=== PATIENT | female | born 1955 | race African-American/Black ===

== ENCOUNTER 2017-09-01 07:04 | Emergency (ER) | payer BC ==
[~2017-09-01] VITALS: Ht 162.6 cm; Wt 91.0 kg
[~2017-09-01 07:04] MED LIST: AMLO10 PO; ATOR80TA PO; MOBI15TA PO; PRIL10CA PO; TAB-TAB PO
[2017-09-01 07:06] VITALS: BP 188/129; PULSE 99; RESP 18; TEMP 98.8; O2SAT 97
--- NOTE | 2017-09-01 07:27 | PD ---
HPI Chief Complaint: Flank/Kidney Pain Time Seen by Provider: 07:24 Travel History International Travel<30 days: No Contact w/Intl Traveler<30days: No Traveled to known affect area: No History of Present Illness HPI 62-year-old female patient with history of hypertension, presents to the ER today because of 2 days history of left flank pain which started on its own, worsening, currently a 9 out of 10. She denies any vomiting, fevers, urinary symptoms, or other symptoms. She does not know any exacerbating or alleviating factors. Modifying Factors: None Associated Signs & Symptoms: Left flank pains Risk Factors: None PFSH Past Medical History Arthritis: Yes Anxiety: Yes Heart Rhythm Problems: Yes (Heart Murmur) Cardiac Catheterization: No Cardiovascular Problems: Yes High Cholesterol: Yes Congestive Heart Failure: No Diabetes: No Diminished Hearing: No GERD: Yes Hypertension: Yes Immunizations Current: Yes Triglycerides - High: Yes ?: Not Menopausal: Yes Past Surgical History Coronary Artery Bypass Graft: No Hysterectomy: Yes Other Surgery: Yes (right knee) Family History Family Myocardial Infarction: Yes Social History Alcohol Use: Yes (WINE NIGHTLY) Tobacco Use: No Substance Use: No Allergies-Medications (Allergen,Severity, Reaction): Coded Allergies: No Known Allergies (Verified Adverse Reaction, Unknown, 09/01/17) Reported Meds & Prescriptions Reported Meds & Active Scripts Active Review of Systems Except as stated in HPI: all other systems reviewed are Neg Physical Exam Narrative GENERAL: Well-developed elderly -Palest[place] female patient currently in moderate distress, tearful, awake and oriented 3. SKIN: Focused skin assessment warm/dry. HEAD: Atraumatic. Normocephalic. EYES: Pupils equal and round. No scleral icterus. No injection or drainage. ENT: No nasal bleeding or discharge. Mucous membranes pink and moist. NECK: Trachea midline. No JVD. CARDIOVASCULAR: Regular rate and rhythm. No murmur appreciated. RESPIRATORY: No accessory muscle use. Clear to auscultation. Breath sounds equal bilaterally. GASTROINTESTINAL: Abdomen soft, left upper quadrant and left-sided mild tenderness without guarding or rebound, nondistended. Hepatic and splenic margins not palpable. MUSCULOSKELETAL: No obvious deformities. No clubbing. No cyanosis. No edema. BACK: Left CVA tenderness. No rash. No point tenderness on palpation of the spine. NEUROLOGICAL: Awake and alert. No obvious cranial nerve deficits. Motor grossly within normal limits. Normal speech. PSYCHIATRIC: Appropriate mood and affect; insight and judgment normal. Data Data Last Documented VS Vital Signs Date Time Temp Pulse Resp B/P (MAP) Pulse Ox O2 Delivery O2 Flow Rate FiO2 09/01/17 07:40 98.5 73 20 144/95 (111) 100 Orders Orders Complete Blood Count With Diff (09/01/17 07:24) Comprehensive Metabolic Panel (09/01/17:24) Lipase (09/01/17:24) Urinalysis - C+S If Indicated (09/01/17:24) Ct Abd/Pel W/O Iv Contrast (09/01/17:24) Iv Access Insert/Monitor (09/01/17:24) Ecg Monitoring (09/01/17:) Oximetry (09/01/17:24) Sodium Chlor 0.9% 1000 Ml Inj (Ns 1000 M (09/01/17 07:24) Sodium Chloride 0.9% Flush (Ns Flush) (09/01/17 07:30) Ketorolac Inj (Toradol Inj) (09/01/17 07:30) Labs Laboratory Tests Test 09/01/17 07:30 White Blood Count 8.1 TH/MM3 Red Blood Count 4.87 MIL/MM3 Hemoglobin 14.4 GM/DL Hematocrit 42.6 % Mean Corpuscular Volume 87.4 FL Mean Corpuscular Hemoglobin 29.6 PG Mean Corpuscular Hemoglobin Concent 33.9 % Red Cell Distribution Width 12.9 % Platelet Count 281 TH/MM3 Mean Platelet Volume 7.9 FL Neutrophils (%) (Auto) 65.1 % Lymphocytes (%) (Auto) 26.1 % Monocytes (%) (Auto) 6.7 % Eosinophils (%) (Auto) 1.5 % Basophils (%) (Auto) 0.6 % Neutrophils # (Auto) 5.3 TH/MM3 Lymphocytes # (Auto) 2.1 TH/MM3 Monocytes # (Auto) 0.5 TH/MM3 Eosinophils # (Auto) 0.1 TH/MM3 Basophils # (Auto) 0.0 TH/MM3 CBC Comment DIFF FINAL Differential Comment Urine Color LIGHT-YELLOW Urine Turbidity CLEAR Urine pH 7.5 Urine Specific [place] 1.012 Urine Protein NEG mg/dL Urine Glucose (UA) NEG mg/dL Urine Ketones NEG mg/dL Urine Occult Blood NEG Urine Nitrite NEG Urine Bilirubin NEG Urine Urobilinogen LESS THAN 2.0 MG/DL Urine Leukocyte Esterase TRACE Urine RBC LESS THAN 1 /hpf Urine WBC 1 /hpf Urine Squamous Epithelial Cells <1 /hpf Microscopic Urinalysis Comment CULT NOT INDICATED Blood Urea Nitrogen 12 MG/DL Creatinine 0.72 MG/DL Random Glucose 105 MG/DL Total Protein 8.8 GM/DL Albumin 4.1 GM/DL Calcium Level 9.4 MG/DL Alkaline Phosphatase 141 U/L Aspartate Amino Transf (AST/SGOT) 22 U/L Alanine Aminotransferase (ALT/SGPT) 47 U/L Total Bilirubin 0.6 MG/DL Sodium Level 139 MEQ/L Potassium Level 3.7 MEQ/L Chloride Level 104 MEQ/L Carbon Dioxide Level 26.3 MEQ/L Anion Gap 9 MEQ/L Estimat Glomerular Filtration Rate 100 ML/MIN Lipase 114 U/L [facility] Medical Decision Making Medical Screen Exam Complete: Yes Emergency Medical Condition: Yes Medical Record Reviewed: Yes Interpretation(s) Laboratory Tests Test 09/01/17 07:30 Urine Leukocyte Esterase TRACE (NEG) Total Protein 8.8 GM/DL (6.4-8.2) Alkaline Phosphatase 141 U/L (45-117) Last 24 hours Impressions Abdomen/Pelvis CT 09/01/17723 Signed Impressions: Service Date/Time: Friday, September 01, 2017 07:47 - CONCLUSION: Normal examination. Small right-sided renal stone. Sigmoid diverticulosis without evidence of diverticulitis . Fermín Honeycutt MD Differential Diagnosis Left flank pains: Renal colic versus muscular skeletal versus UTI/pyelonephritis Narrative Course CAT scan did not show any signs of acute intra-abdominal processes. Lab work was otherwise unremarkable. Patient was given try to offer pain and Flexeril. Vital signs are stable in the ER. No signs of UTI or significant metabolic issues were identified. No signs of leukocytosis was identified. At this point , my plan would be to release the patient with follow-up to primary care doctor. Return for any worsening in pain, or new symptoms as needed. The plan has been discussed with the patient and she states understanding. Diagnosis Primary Impression: Flank pain Med/Other Pt SpecificInfo: Prescription(s) given Scripts Tramadol (Tramadol) 50 Mg Tab 50 MG PO Q8H Y for PAIN, #15 TAB 0 Refills Prov: Shayla Arevalo MD 09/01/17 Disposition: 01 DISCHARGE HOME Condition: Stable Shayla Arevalo MD Sep 01, 2017 07:27
[2017-09-01] MEDS ORDERED: KETOROLAC TROMETHAMINE 30 MG/ML (IVP) VIAL IVP ONE (07:30)
[2017-09-01] MEDS ORDERED: SODIUM CHLORIDE 0.9% FLUSH 10 ML FLUSH IV FLUSH PRN (07:30)
[2017-09-01] MEDS: SODIUM CHLOR 0.9% 1000 ML INJ 1,000 ML IV SCH ×2 (07:36→09:11)
[2017-09-01 07:40] VITALS: BP 144/95; PULSE 73; RESP 20; TEMP 98.5; O2SAT 100
[2017-09-01] MEDS ORDERED: AMLO10TA2 PO (07:44)
[2017-09-01] MEDS ORDERED: SIMV10TA PO (07:44)
[2017-09-01] MEDS ORDERED: MELO7.5T27 PO (07:44)
[2017-09-01] MEDS ORDERED: CALC12502 PO (07:44)
[2017-09-01] MEDS ORDERED: OMEP20TA93 PO (07:44)
--- NOTE | 2017-09-01 08:07 | RADRPT ---
EXAM DATE/TIME: 09/01/2017 07:47 [facility] COMPARISON: No previous studies available for comparison. INDICATIONS : Left flank pain. ORAL CONTRAST: No oral contrast ingested. RADIATION DOSE: 13.51 CTDIvol (mGy) MEDICAL HISTORY : Cardiovascular disease. Hypertension. SURGICAL HISTORY : Hysterectomy. ENCOUNTER: Initial ACUITY: 1 day PAIN SCALE: 6/10 LOCATION: Left flank TECHNIQUE: Volumetric scanning of the abdomen and pelvis was performed. Using automated exposure control and ad justment of the mA and/or kV according to patient size, radiation dose was kept as low as reasonably achievable to obtain optimal diagnostic quality images. DICOM format image data is available electro nically for review and comparison. FINDINGS: LOWER LUNGS: The visualized lower lungs are clear. LIVER: Homogeneous density without lesion. There is no dilation of the biliary tree. No calcified gallston es. SPLEEN: Normal size without lesion. PANCREAS: Within normal limits. KIDNEYS: Normal in size and shape. There is no mass, or hydronephrosis. Small stone mid pole right kidney ADRENAL GLANDS: Within normal limits. VASCULAR: There is no aortic aneurysm. BOWEL/MESENTERY: The stomach, small bowel, and colon demonstrate no acute abnormality. There is no free intraperitone al air or fluid. ABDOMINAL WALL: Within normal limits. RETROPERITONEUM: There is no lymphadenopathy. BLADDER: No wall thickening or mass. REPRODUCTIVE: Within normal limits. INGUINAL: There is no lymphadenopathy or hernia. MUSCULOSKELETAL: Within normal limits for patient age. CONCLUSION: Normal examination. Small right-sided renal stone. Sigmoid diverticulosis without evidence of diverticulitis . Fermín Honeycutt MD on September 01, 2017 at 8:03 Board Certified Radiologist. This report was verified electronically.
[2017-09-01 08:16] LABS: ALT (GPT) 47 U/L (10-53); ANION GAP 9 MEQ/L (5-15); AST (GOT) 22 U/L (15-37); AUTOMATED NEUTROPHIL # 5.3 TH/MM3 (1.8-7.7); BASOPHIL % 0.6 % (0.0-2.0); BICARBONATE 26.3 MEQ/L (21.0-32.0); BLOOD UREA NITROGEN 12 MG/DL (7-18); CHLORIDE 104 MEQ/L (98-107); EOSINOPHIL # 0.1 TH/MM3 (0-0.4); EOSINOPHIL % 1.5 % (0.0-4.0); GLOMERULAR FILTRATION RATE 100 ML/MIN (>89); HEMATOCRIT 42.6 % (35.0-46.0); HEMO FLAGS DIFF FINAL; LYMPH % 26.1 % (9.0-44.0); LYMPHOCYTE # 2.1 TH/MM3 (1.0-4.8); MEAN CELL VOLUME 87.4 FL (80.0-100.0); MEAN CORPUSCULAR HEMOGLOBIN 29.6 PG (27.0-34.0); MEAN CORPUSCULAR HGB CONC 33.9 % (32.0-36.0); MONO % 6.7 % (0.0-8.0); NEUT % 65.1 % (16.0-70.0); PLATELET COUNT 281 TH/MM3 (150-450); POTASSIUM 3.7 MEQ/L (3.5-5.1); RED BLOOD COUNT 4.87 MIL/MM3 (4.00-5.30); RED CELL DISTRIBUTION WIDTH 12.9 % (11.6-17.2); SODIUM (NA) 139 MEQ/L (136-145); WHITE BLOOD COUNT 8.1 TH/MM3 (4.0-11.0)
[2017-09-01 08:18] LABS: BLOOD, URINE NEG (NEG); GLUCOSE,URINE NEG (NEG); KETONE, URINE NEG (NEG); NITRITE,URINE NEG (NEG); PH, URINE 7.5 (5.0-8.5); SQUAMOUS EPITHELIAL CELL URINE <1 /hpf (0-5); URINE COLOR LIGHT-YELLOW (YELLW/STRAW)
[2017-09-01 08:19] LABS: ALKALINE PHOSPHATASE 141 U/L (45-117); TOTAL BILIRUBIN ADULT 0.6 MG/DL (0.2-1.0)
[2017-09-01 08:26] LABS: COMMENT (UR) CULT NOT INDICATED; CULTURE IF INDICATED CULT NOT INDICATED
[2017-09-01] MEDS ORDERED: TRAM50TA PO (08:39)
[2017-09-01] MEDS ORDERED: CYCLOBENZAPRINE HCL 10 MG TAB PO ONE (08:45)
[2017-09-01 09:12] VITALS: RESP 20
== END 2017-09-01 09:52 | disposition home or self-care (01) ==
LOC: NEPC 07:04
DX: N20.0 Calculus of kidney (principal); K57.30 Diverticulosis of large intestine without perforation or abscess without bleeding; I10 Essential (primary) hypertension; M19.90 Unspecified osteoarthritis, unspecified site; F41.9 Anxiety disorder, unspecified; E78.00 Pure hypercholesterolemia, unspecified; K21.9 Gastro-esophageal reflux disease without esophagitis
CPT/HCPCS: 74176; 80053; 81001; 83690; 85025; 96361; 96374; 99285; J1885; J7030

== ENCOUNTER 2017-11-24 13:09 | Observation (INO) | payer BC ==
[~2017-11-24] VITALS: Ht 165.1 cm; Wt 86.0 kg
[~2017-11-24 13:09] MED LIST changes: -AMLO10 PO; +AMLO10TA2 PO; -ATOR80TA PO; +CALC12502 PO; +MELO7.5T27 PO; -MOBI15TA PO; +OMEP20TA93 PO; -PRIL10CA PO; +SIMV10TA PO; -TAB-TAB PO; +TRAM50TA PO
[2017-11-24 13:12] VITALS: BP 145/98; PULSE 87; RESP 16; TEMP 98.7; O2SAT 100
[2017-11-24] MEDS ORDERED: HYDR-3516 PO (13:41)
[2017-11-24] MEDS ORDERED: LISI10TA3 PO (13:41)
[2017-11-24] MEDS ORDERED: CYCL10TA PO (13:41)
[2017-11-24] MEDS ORDERED: FAMOTIDINE 20 MG/2 ML VIAL IV PUSH ONE (13:45)
[2017-11-24] MEDS ORDERED: SODIUM CHLORIDE 0.9% FLUSH 10 ML FLUSH IV FLUSH PRN ×2 (13:45→15:30)
[2017-11-24] MEDS ORDERED: methylPREDNISolone SOD SUCC 125 MG/2 ML VIAL IV PUSH ONE (13:45)
[2017-11-24] MEDS ORDERED: diphenhydrAMINE HCL 50 MG/ML VIAL IVP ONE (13:45)
[2017-11-24 13:46] VITALS: RESP 16
[2017-11-24 13:58] VITALS: BP 159/93; PULSE 83; RESP 18; O2SAT 100
[2017-11-24 14:06] LABS: HEMATOCRIT 42.6 % (35.0-46.0); HEMOGLOBIN 14.1 GM/DL (11.6-15.3); MEAN CELL VOLUME 87.4 FL (80.0-100.0); MEAN CORPUSCULAR HGB CONC 33.2 % (32.0-36.0); MEAN PLATELET VOLUME 7.7 FL (7.0-11.0); PLATELET COUNT 293 TH/MM3 (150-450); RED BLOOD COUNT 4.87 MIL/MM3 (4.00-5.30); RED CELL DISTRIBUTION WIDTH 12.9 % (11.6-17.2); WHITE BLOOD COUNT 9.6 TH/MM3 (4.0-11.0)
[2017-11-24 14:17] LABS: BICARBONATE 25.6 MEQ/L (21.0-32.0); CALCIUM 9.4 MG/DL (8.5-10.1); CREATININE 0.7 MG/DL (0.50-1.00)
--- NOTE | 2017-11-24 14:20 | PD ---
HPI Chief Complaint: Allergic/Adverse Reaction Time Seen by Provider: 13:34 Travel History International Travel<30 days: No Contact w/Intl Traveler<30days: No Traveled to known affect area: No History of Present Illness HPI 62 y/o female presents with swelling to her lip and face that started approximately 2 hours ago. She states she took a Flexeril they're the time that this happened but she's taken that before. She states she also has hydrocodone for her pain after her recent surgery to her arm that she's also taken before. She states that she is on lisinopril and has been on that for a couple of months. She denies any other concurrent complaints at this time. Quality is swollen. Location is lip and lower face. She denies specific modifying factors. PFSH Past Medical History Arthritis: Yes Anxiety: Yes Heart Rhythm Problems: Yes (Heart Murmur) Cardiac Catheterization: No Cardiovascular Problems: Yes High Cholesterol: Yes Congestive Heart Failure: No Diabetes: No Diminished Hearing: No GERD: Yes Heparin Induced Thrombocytopen: No Hypertension: Yes Immunizations Current: Yes Triglycerides - High: Yes Tetanus Vaccination: Unknown Influenza Vaccination: No Menopausal: Yes Past Surgical History Coronary Artery Bypass Graft: No Hysterectomy: Yes Other Surgery: Yes (right knee) Family History Family Myocardial Infarction: Yes Social History Alcohol Use: Yes (WINE NIGHTLY) Tobacco Use: No Substance Use: No Allergies-Medications (Allergen,Severity, Reaction): Coded Allergies: acetaminophen (Verified Allergy, Severe, ANGIOEDEMA, 11/24/17) cyclobenzaprine (Verified Allergy, Severe, ANGIOEDEMA, 11/24/17) hydrocodone (Verified Allergy, Severe, ANGIOEDEMA, 11/24/17) Reported Meds & Prescriptions Reported Meds & Active Scripts Active Reported Hydrocodone-Acetaminophen 5-325 mg Tab 1 Tab PO Q6H PRN Flexeril (Cyclobenzaprine HCl) 10 Mg Tab 10 Mg PO BID Lisinopril 10 Mg Tab 10 Mg PO DAILY Calcium Carbonate 500 Mg Calcium (1250 Mg) Tab 1,250 Mg PO BID 1,250 mg calcium carbonate (500 mg elemental calcium) Simvastatin 10 Mg Tab 10 Mg PO DAILY Amlodipine (Amlodipine Besylate) 10 Mg Tab 10 Mg PO DAILY Meloxicam 7.5 Mg Tab 7.5 Mg PO DAILY Omeprazole 20 Mg Tab 20 Mg PO DAILY Review of Systems Except as stated in HPI: all other systems reviewed are Neg Physical Exam Narrative GENERAL: Well-nourished, well-developed patient. SKIN: Warm and dry. No rash noted HEAD: Normocephalic and atraumatic. EYES: No injection or drainage. ENT: No nasal drainage noted. Uvula midline without swelling, patient has swelling to upper lip and right lower face NECK: Supple, trachea midline. CARDIOVASCULAR: Regular rate and rhythm RESPIRATORY: Breath sounds equal bilaterally. No accessory muscle use. GASTROINTESTINAL: Abdomen soft, non-tender, nondistended. EXTREMITIES: No edema. NEUROLOGICAL: Awake and alert. moves all extremities and sensory grossly within normal limits. Normal speech. Data Data Last Documented VS Vital Signs Date Time Temp Pulse Resp B/P (MAP) Pulse Ox O2 Delivery O2 Flow Rate FiO2 11/24/17 13:58 83 18 159/93 (115) 100 Room Air 11/24/17 13:12 98.7 Orders Orders Basic Metabolic Panel (Bmp) (11/24/17 13:37) Complete Blood Count With Diff (11/24/17 13:37) Ecg Monitoring (11/24/17 13:37) Iv Access Insert/Monitor (11/24/17 13:37) Oximetry (11/24/17 13:37) Diphenhydramine Inj (Benadryl Inj) (11/24/17 13:45) Methylprednisolone So Succ Inj (Solumedr (11/24/17 13:45) Famotidine Inj (Pepcid Inj) (11/24/17 13:45) Sodium Chloride 0.9% Flush (Ns Flush) (11/24/17 13:45) Labs Laboratory Tests Test 11/24/17 13:45 White Blood Count 9.6 TH/MM3 Red Blood Count 4.87 MIL/MM3 Hemoglobin 14.1 GM/DL Hematocrit 42.6 % Mean Corpuscular Volume 87.4 FL Mean Corpuscular Hemoglobin 29.0 PG Mean Corpuscular Hemoglobin Concent 33.2 % Red Cell Distribution Width 12.9 % Platelet Count 293 TH/MM3 Mean Platelet Volume 7.7 FL CBC Comment AUTO DIFF Differential Total Cells Counted 100 Neutrophils % (Manual) 72 % Lymphocytes % 17 % Monocytes % 10 % Eosinophils % 1 % Neutrophils # (Manual) 6.9 TH/MM3 Differential Comment FINAL DIFF MANUAL Platelet Estimate NORMAL Platelet Morphology Comment NORMAL Red Cell Morphology Comment NORMAL Blood Urea Nitrogen 12 MG/DL Creatinine 0.70 MG/DL Random Glucose 86 MG/DL Calcium Level 9.4 MG/DL Sodium Level 137 MEQ/L Potassium Level 4.7 MEQ/L Chloride Level 105 MEQ/L Carbon Dioxide Level 25.6 MEQ/L Anion Gap 6 MEQ/L Estimat Glomerular Filtration Rate 103 ML/MIN MDM Medical Decision Making Medical Screen Exam Complete: Yes Emergency Medical Condition: Yes Medical Record Reviewed: Yes (pmh confirmed) Interpretation(s) CBC & BMP Diagram 11/24/17 13:45 Calcium Level 9.4 Differential Diagnosis Angioedema, allergic reaction, medication effect, abscess Narrative Course Will check blood work and dose with Solu-Medrol, Pepcid, Benadryl and reevaluate patient likely with angioedema from lisinopril. Patient agrees to observation for clinical monitoring. Physician Communication Physician Communication dr oropeza agrees to admit Diagnosis Primary Impression: Angioedema Qualified Codes: T78.3XXA - Angioneurotic edema, initial encounter Admitting Information Admitting Physician Requests: Observation Wanda Moreno MD Nov 24, 2017 14:20
[2017-11-24 14:45] LABS: LYMPHOCYTES 17 % (9-44); MONOCYTES 10 % (0-8); NEUTROPHIL # MANUAL DIFF 6.9 TH/MM3 (1.8-7.7); POLYS (SEG NEUTROPHILS) 72 % (16-70)
[2017-11-24] MEDS ORDERED: LACTULOSE SYRUP 20 GM/30 ML CUP PO PRN (15:30)
[2017-11-24] MEDS ORDERED: ONDANSETRON HCL 4 MG/2 ML VIAL IVP PRN (15:30)
[2017-11-24] MEDS ORDERED: MAGNESIUM HYDROXIDE SUSP 30 ML CUP PO PRN (15:30)
[2017-11-24] MEDS ORDERED: SENNOSIDES 8.6 MG TAB PO PRN (15:30)
[2017-11-24] MEDS ORDERED: ACETAMINOPHEN 325 MG TAB PO PRN (15:30)
[2017-11-24] MEDS ORDERED: NALOXONE HCL 0.4 MG/ML AMP IV PUSH PRN (15:30)
[2017-11-24] MEDS ORDERED: BISACODYL 10 MG SUPP RECTAL PRN (15:30)
[2017-11-24] MEDS ORDERED: diphenhydrAMINE HCL 50 MG/ML VIAL IV PUSH PRN (15:30)
[2017-11-24] MEDS ORDERED: ACETAMINOPHEN/HYDROcodone 325 MG/5 MG TAB PO PRN (15:30)
[2017-11-24 15:40] VITALS: BP 130/89; PULSE 73; RESP 18; O2SAT 96
[2017-11-24 16:31] VITALS: BP 136/84; PULSE 83; RESP 18; TEMP 98.3; O2SAT 95
--- NOTE | 2017-11-24 16:44 | HHI.HP ---
[facility] Unknown Admission Diagnosis angioedema Diagnoses: Chief Complaint: Swelling of lips Travel History International Travel<30 Days: No Contact w/Intl Traveler <30 Da: No Traveled to Known Affected Are: No History of Present Illness The patient is a very pleasant 62-year-old female with past medical history of hypertension, hyperlipidemia, GERD who came to the emergency room with complaints of swelling of the lips today in the morning. The patient is taking lisinopril for high blood pressure, she took the last dose last night. She also eats flexor or long period of time. Her blood pressure was uncontrolled and her physician started her recently on lisinopril. She was taking amlodipine as well. She notices her face also is starting to get more swollen and she has also associated with some shortness of breath. No wheezing , she is satting well no problems swallowing. Denies chest pain or palpitations. No lightheadedness. No rash on the body. No nausea or vomiting no diarrhea or constipation. Denies lightheadedness. Review of Systems Except as stated in HPI: all other systems reviewed are Neg Past Family Social History Past Medical History Hypertension, hyperlipidemia, GERD Past Surgical History Left hand carpal tunnel surgery recently 1 week ago Reported Medications Reported Meds & Active Scripts Active Reported Hydrocodone-Acetaminophen 5-325 mg Tab 1 Tab PO Q6H PRN Flexeril (Cyclobenzaprine HCl) 10 Mg Tab 10 Mg PO BID Lisinopril 10 Mg Tab 10 Mg PO DAILY Calcium Carbonate 500 Mg Calcium (1250 Mg) Tab 1,250 Mg PO BID 1,250 mg calcium carbonate (500 mg elemental calcium) Simvastatin 10 Mg Tab 10 Mg PO DAILY Amlodipine (Amlodipine Besylate) 10 Mg Tab 10 Mg PO DAILY Meloxicam 7.5 Mg Tab 7.5 Mg PO DAILY Omeprazole 20 Mg Tab 20 Mg PO DAILY Allergies: Coded Allergies: acetaminophen (Verified Allergy, Severe, ANGIOEDEMA, 11/24/17) cyclobenzaprine (Verified Allergy, Severe, ANGIOEDEMA, 11/24/17) hydrocodone (Verified Allergy, Severe, ANGIOEDEMA, 11/24/17) lisinopril (Verified Allergy, Severe, Edema, 11/24/17) angioedema Active Ordered Medications Current Medications Medications (Trade) Dose Ordered Sig/Sruthi Route Start Time Stop Time Status Last Admin (Norvasc) 10 mg DAILY PO 11/25/17 09:00 (Mobic) 7.5 mg DAILY PO 11/25/17 09:00 (Protonix) 20 mg DAILY PO 11/25/17 09:00 (Pravachol) 20 mg DAILY PO 11/25/17 09:00 (SoluMEDROL INJ) 40 mg Q8HR IV PUSH 11/24/17 22:00 (Benadryl Inj) 25 mg Q4H PRN IV PUSH 11/24/17 15:30 Sodium Chloride 1,000 ml @ 100 mls/hr Q10H IV 11/24/17 16:00 11/24/17 17:20 (NS Flush) 2 ml UNSCH PRN IV FLUSH 11/24/17 15:30 (NS Flush) 2 ml BID IV FLUSH 11/24/17 21:00 (Zofran Inj) 4 mg Q6H PRN IVP 11/24/17 15:30 (Lovenox Inj) 40 mg Q24H SQ 11/24/17 17:00 11/24/17 17:20 (Narcan Inj) 0.4 mg UNSCH PRN IV PUSH 11/24/17 15:30 (Gauri-Colace) 1 tab BID PO 11/24/17 21:00 (Milk Of Magnesia Liq) 30 ml Q12H PRN PO 11/24/17 15:30 (Senokot) 17.2 mg Q12H PRN PO 11/24/17 15:30 (Dulcolax Supp) 10 mg DAILY PRN RECTAL 11/24/17 15:30 (Lactulose Liq) 30 ml DAILY PRN PO 11/24/17 15:30 (Percocet 5-325 Mg) 1 tab Q6H PRN PO 11/24/17 18:15 Family History Her mother with hypertension, hyperlipidemia Father with diabetes Social History Denies alcohol use, illicit drug use or tobacco use Physical Exam Vital Signs Vital Signs Date Time Temp Pulse Resp B/P (MAP) Pulse Ox O2 Delivery O2 Flow Rate FiO2 11/24/17 16:31 98.3 83 18 136/84 (101) 95 1/28/18 16:19 11/24/17 15:40 73 18 130/89 (103) 96 Nasal Cannula 11/24/17 13:58 83 18 159/93 (115) 100 Room Air 11/24/17 13:57 83 22 100 Room Air 11/24/17 13:46 16 Room Air 11/24/17 13:12 98.7 87 16 145/98 (114) 100 Physical Exam GENERAL: This is a very pleasant 62-year-old female with an Turkish, well- nourished, well-developed patient, in no apparent distress. SKIN: Upper and lower lips edema, no erythema. Cool and dry. HEAD: Atraumatic. Normocephalic. No temporal or scalp tenderness. EYES: Pupils equal round and reactive. Extraocular motions intact. No scleral icterus. No injection or drainage. ENT: Nose without bleeding, purulent drainage or septal hematoma. Throat without erythema, tonsillar hypertrophy or exudate. Uvula midline. Airway patent. NECK: Trachea midline. No JVD or lymphadenopathy. Supple, nontender, no meningeal signs. CARDIOVASCULAR: Regular rate and rhythm without murmurs, gallops, or rubs. RESPIRATORY: Clear to auscultation. Breath sounds equal bilaterally. No wheezes , rales, or rhonchi. GASTROINTESTINAL: Abdomen soft, non-tender, nondistended. No hepato-splenomegaly , or palpable masses. No guarding. MUSCULOSKELETAL: Extremities without clubbing, cyanosis, or edema. No joint tenderness, effusion, or edema noted. No calf tenderness. Negative Homans sign bilaterally. NEUROLOGICAL: Awake and alert. Cranial nerves II through XII intact. Motor and sensory grossly within normal limits. Five out of 5 muscle strength in all muscle groups. Normal speech. Laboratory Laboratory Tests Test 11/24/17 13:45 White Blood Count 9.6 Red Blood Count 4.87 Hemoglobin 14.1 Hematocrit 42.6 Mean Corpuscular Volume 87.4 Mean Corpuscular Hemoglobin 29.0 Mean Corpuscular Hemoglobin Concent 33.2 Red Cell Distribution Width 12.9 Platelet Count 293 Mean Platelet Volume 7.7 CBC Comment AUTO DIFF Differential Total Cells Counted 100 Neutrophils % (Manual) 72 Lymphocytes % 17 Monocytes % 10 Eosinophils % 1 Neutrophils # (Manual) 6.9 Differential Comment FINAL DIFF MANUAL Platelet Estimate NORMAL Platelet Morphology Comment NORMAL Red Cell Morphology Comment NORMAL Blood Urea Nitrogen 12 Creatinine 0.70 Random Glucose 86 Calcium Level 9.4 Sodium Level 137 Potassium Level 4.7 Chloride Level 105 Carbon Dioxide Level 25.6 Anion Gap 6 Estimat Glomerular Filtration Rate 103 Result Diagram: 11/24/17 1345 11/24/17 1345 Caprini VTE Risk Assessment Caprini VTE Risk Assessment: Mod/High Risk (score >= 2) Caprini Risk Assessment Model Point Value = 1 Point Value = 2 Point Value = 3 Point Value = 5 Age 41-60 Minor surgery BMI > 25 kg/m2 Swollen legs Varicose veins or History of unexplained or recurrent spontaneous Oral contraceptives or hormone replacement Sepsis (< 1 month) Serious lung disease, including pneumonia (< 1 month) Abnormal pulmonary function Acute myocardial infarction Congestive heart failure (< 1 month) History of inflammatory bowel disease Medical patient at bed rest Age 61-74 Arthroscopic surgery Major open surgery (> 45 min) Laparoscopic surgery (> 45 min) Malignancy Confined to bed (> 72 hours) Immobilizing plaster cast Central venous access Age >= 75 History of VTE Family history of VTE Factor V Leiden Prothrombin [id number] Lupus anticoagulant Anticardiolipin antibodies Elevated serum homocysteine Heparin-induced thrombocytopenia Other congenital or acquired thrombophilia Stroke (< 1 month) Elective arthroplasty Hip, pelvis, or leg fracture Acute spinal cord injury (< 1 month) Prophylaxis Regimen Total Risk Factor Score Risk Level Prophylaxis Regimen 0-1 Low Early ambulation 2 Moderate Order ONE of the following: *Sequential Compression Device (SCD) *Heparin 5000 units SQ BID 3-4 Higher Order ONE of the following medications: *Heparin 5000 units SQ TID *Enoxaparin/Lovenox 40 mg SQ daily (WT < 150 kg, CrCl > 30 mL/min) *Enoxaparin/Lovenox 30 mg SQ daily (WT < 150 kg, CrCl > 10-29 mL/min) *Enoxaparin/Lovenox 30 mg SQ BID (WT < 150 kg, CrCl > 30 mL/min) AND/OR *Sequential Compression Device (SCD) 5 or more Highest Order ONE of the following medications: *Heparin 5000 units SQ TID (Preferred with Epidurals) *Enoxaparin/Lovenox 40 mg SQ daily (WT < 150 kg, CrCl > 30 mL/min) *Enoxaparin/Lovenox 30 mg SQ daily (WT < 150 kg, CrCl > 10-29 mL/min) *Enoxaparin/Lovenox 30 mg SQ BID (WT < 150 kg, CrCl > 30 mL/min) AND *Sequential Compression Device (SCD) Assessment and Plan Assessment and Plan Reflexes 62-year-old with Angioedema secondary to lisinopril use GERD Hyperlipidemia hold lisinopril Monitor on telemetry Oxygen supplemented by nasal cannula oxygen saturation more than 94% Received Solu Medrol 125 mg in the emergency room continue Solu-Medrol 40 mg every 8 hours taper as tolerated. Received Benadryl in the emergency room continue Benadryl by IV 5 mg every 6 hours when necessary for swelling IV fluids Continue home medication as appropriate hold lisinopril DVT prophylaxis SCD/teds/Lovenox Discussed Condition With Patient, nurse, ED physician Riana Chiang MD Nov 24, 2017 16:44
[2017-11-24] MEDS ORDERED: ENOXAPARIN SODIUM 40 MG/0.4 ML SYRINGE SQ SCH (17:00)
[2017-11-24] MEDS: SODIUM CHLOR 0.9% 1000 ML INJ 1,000 ML IV SCH (17:20)
[2017-11-24 20:09] VITALS: BP 129/78; PULSE 105; RESP 18; TEMP 99.5; O2SAT 95
[2017-11-24] MEDS: SODIUM CHLORIDE 0.9% FLUSH 10 ML FLUSH IV FLUSH SCH (21:01)
[2017-11-24] MEDS: DOCUSATE SODIUM 50 MG/SENNA 8.6 MG TAB PO SCH (21:01)
[2017-11-24] MEDS: methylPREDNISolone SOD SUCC 40 MG/1 ML VIAL IV PUSH SCH (21:02)
[2017-11-24] MEDS: oxyCODONE/ACETAMINOPHEN 5 MG/325 MG TAB PO PRN (21:03)
[2017-11-25 00:20] VITALS: BP 120/80; PULSE 79; RESP 18; TEMP 96.6; O2SAT 95
[2017-11-25] MEDS: SODIUM CHLOR 0.9% 1000 ML INJ 1,000 ML IV SCH (01:03)
[2017-11-25 04:26] VITALS: BP 125/68; PULSE 80; RESP 18; TEMP 97.8; O2SAT 95
[2017-11-25] MEDS: methylPREDNISolone SOD SUCC 40 MG/1 ML VIAL IV PUSH SCH (05:37)
[2017-11-25 07:52] VITALS: BP 141/93; PULSE 85; RESP 20; TEMP 98.1; O2SAT 95
[2017-11-25] MEDS: DOCUSATE SODIUM 50 MG/SENNA 8.6 MG TAB PO SCH (08:12)
[2017-11-25] MEDS: oxyCODONE/ACETAMINOPHEN 5 MG/325 MG TAB PO PRN (08:15)
[2017-11-25] MEDS: SODIUM CHLORIDE 0.9% FLUSH 10 ML FLUSH IV FLUSH SCH (08:25)
[2017-11-25 08:28] LABS: AUTOMATED NEUTROPHIL # 8.3 TH/MM3 (1.8-7.7); BASOPHIL % 0.1 % (0.0-2.0); HEMATOCRIT 37.9 % (35.0-46.0); LYMPH % 7.8 % (9.0-44.0); LYMPHOCYTE # 0.7 TH/MM3 (1.0-4.8); MEAN CELL VOLUME 86.1 FL (80.0-100.0); MEAN CORPUSCULAR HEMOGLOBIN 29.6 PG (27.0-34.0); MEAN CORPUSCULAR HGB CONC 34.4 % (32.0-36.0); MEAN PLATELET VOLUME 7.8 FL (7.0-11.0); MONOCYTE # 0.3 TH/MM3 (0-0.9); NEUT % 89.1 % (16.0-70.0); PLATELET COUNT 301 TH/MM3 (150-450); RED BLOOD COUNT 4.41 MIL/MM3 (4.00-5.30); RED CELL DISTRIBUTION WIDTH 12.6 % (11.6-17.2); WHITE BLOOD COUNT 9.3 TH/MM3 (4.0-11.0)
[2017-11-25] MEDS ORDERED: PRAVASTATIN SOD 20 MG TAB PO SCH (09:00)
[2017-11-25] MEDS ORDERED: PANTOPRAZOLE SOD 20 MG DELAYED RELEASE TAB PO SCH (09:00)
[2017-11-25] MEDS ORDERED: MELOXICAM 7.5 MG TAB PO SCH (09:00)
[2017-11-25 09:08] LABS: BICARBONATE 24.1 MEQ/L (21.0-32.0); CALCIUM 9.6 MG/DL (8.5-10.1); CREATININE 0.57 MG/DL (0.50-1.00)
[2017-11-25] MEDS ORDERED: PRED20 PO (11:27)
[2017-11-25] MEDS ORDERED: DIPH25CA PO (11:29)
--- NOTE | 2017-11-25 11:29 | HHI.PR ---
Subjective Remarks Follow-up for angioedema related to lisinopril. Patient is currently doing well. She feels her overall swelling has gone down. She still has some leg swelling. No airway compromise. She is able to eat and drink well. She is on room air. She wants to go home. Objective Vitals Vital Signs Date Time Temp Pulse Resp B/P (MAP) Pulse Ox O2 Delivery O2 Flow Rate FiO2 11/25/17 07:52 98.1 85 20 141/93 (109) 95 11/25/17 04:26 97.8 80 18 125/68 (87) 95 11/25/17 00:20 96.6 79 18 120/80 (93) 95 11/24/17 22:56 21 11/24/17 20:09 99.5 105 18 129/78 (95) 95 11/24/17 16:31 98.3 83 18 136/84 (101) 95 11/24/17 16:19 11/24/17 15:40 73 18 130/89 (103) 96 Nasal Cannula 11/24/17 13:58 83 18 159/93 (115) 100 Room Air 11/24/17 13:57 83 22 100 Room Air 11/24/17 13:46 16 Room Air 11/24/17 13:12 98.7 87 16 145/98 (114) 100 Result Diagram: 11/25/17 0700 11/25/17 0700 Objective Remarks GENERAL: Alert, oriented 3, NAD. SKIN: Warm and dry. HEAD: Normocephalic. EYES: No scleral icterus. No injection or drainage. NECK: Supple, trachea midline. No JVD or lymphadenopathy. CARDIOVASCULAR: Regular rate and rhythm without murmurs, gallops, or rubs. RESPIRATORY: Breath sounds equal bilaterally. No accessory muscle use. GASTROINTESTINAL: Abdomen soft, non-tender, nondistended. MUSCULOSKELETAL: No cyanosis, or edema. BACK: Nontender without obvious deformity. No CVA tenderness. Procedures None A/P Problem List: (1) Angioedema due to angiotensin converting enzyme inhibitor (NORBERTO-I) ICD Code: T78.3XXA - Angioneurotic edema, initial encounter; T46.4X1A - Poisoning by [id number]-ojjcgqyqrn-mlgcqf inhibitors, accidental (unintentional ), initial encounter (2) Hypertension ICD Code: I10 - Essential (primary) hypertension Assessment and Plan Ms. Bowling is a pleasant 62-year-old female with a history of hypertension who presented to the emergency department due to angioedema. Patient was given steroid, diphenhydramine. She did not have any airway compromise. Patient gradually improved with supportive care. On the day of discharge, patient remained in hemodynamically stable condition. No supplemental oxygen requirement. We discussed with patient regarding future use of any NORBERTO inhibitor or ARB. Patient is instructed not to ever use NORBERTO inhibitor or ARB in future. Patient verbalized understanding. Her blood pressure is well controlled currently on amlodipine 10 mg daily. If in future and other antihypertensive medication is required, other medications such as HCTZ or hydralazine could be considered. We discharged patient on 5 days of prednisone 20 mg daily and diphenhydramine 25 mg every 12 hours when necessary. Patient was instructed to seek medical attention if she notices any worsening of her symptoms. Patient verbalized understanding. - Angioedema - discontinue lisinopril. Patient is instructed not to use NORBERTO inhibitor or ARB in future. - Hypertension - currently controlled. Continue amlodipine 10 mg by mouth daily. - Hyperlipidemia - continue simvastatin. Full code. Ambulation. Discharge patient to home Condition on discharge: Improved Heart healthy Diet as tolerated Ad Yodit activity Rx written: - Prednisone 20 mg daily for 5 days - Diphenhydramine 25 mg by mouth every 12 hours when necessary Follow-up with primary care physician within one week. Federico Patino DO Nov 25, 2017 11:29 am
[2017-11-25 11:36] VITALS: BP 126/83; PULSE 100; RESP 20; TEMP 98.7; O2SAT 97
--- NOTE | 2017-11-25 19:40 | EKG ---
Date Performed: 11/24/2017 Time Performed: 13:42:18 PTAGE: 62 years EKG: Sinus rhythm Since previous tracing, no significant change noted NORMAL ECG PREVIOUS TRACING : 10/01/2014 14.22 DOCTOR: Mahesh Rodriguez Interpretating Date/Time 11/25/2017 19:39:30
== END 2017-11-25 14:16 | disposition home or self-care (01) ==
LOC: NEPC 13:09 → NEDA 15:22 → NEPHCDU 16:31
PROVIDERS: ADMIT Hospitalist; ATTEND Hospitalist
DX: T78.3XXA Angioneurotic edema, initial encounter (principal); T46.4X5A Adverse effect of angiotensin-converting-enzyme inhibitors, initial encounter; M79.89 Other specified soft tissue disorders; R01.1 Cardiac murmur, unspecified; K21.9 Gastro-esophageal reflux disease without esophagitis; I10 Essential (primary) hypertension; E78.5 Hyperlipidemia, unspecified
CPT/HCPCS: 80048; 85007; 85025; 85027; 93005; 96361; 96374; 96375; 96376; 97162; 99285; G0378; G8987; G8988; J1200; J1650; J2920; J2930; J7030